=== PATIENT | female | born 1990 ===

== ENCOUNTER 2020-09-05 00:07 | Emergency (ER) | payer MEDICAID, SELFPAY ==
--- NOTE | ~2020-09-05 | CT_ITS ---
EXAMINATION: CT HEAD WITHOUT CONTRAST CLINICAL INFORMATION: Fall with head injury. Headache. Loss of consciousness. COMPARISON: None. TECHNIQUE: Contiguous axial imaging was performed from the skull base to vertex without intravenous contrast. This CT examination was performed using dose optimization techniques as appropriate, variously including the following: * Automated exposure control * Adjustment of mA and/or kV according to patient size (this includes techniques or standardized protocols for targeted exams where dose is matched to indication/reason for exam; i.e. extremities or head) Use of iterative reconstruction technique DLP: 621 mGy-cm. FINDINGS: There is no evidence of acute intracranial hemorrhage or territorial infarction. No abnormal mass effect or midline shift is seen. Carpio to white matter differentiation is well preserved. No extra-axial fluid collections are identified. No hydrocephalus. No significant volume loss. There is no abnormal attenuation within the brain parenchyma. The osseous structures and soft tissues are normal. The mastoid air cells and visualized portions of the paranasal sinuses are well aerated. CT/CT head/brain wo con IMPRESSION: No acute intracranial pathology.
[2020-09-05 00:14] VITALS: BP 135/85; PULSE 113; RESP 18; TEMP 36.2; O2SAT 97; BMI 27.3
[2020-09-05 01:40] LABS: UPreg QC Valid YES; Urine Pregnancy NEGATIVE (NEGATIVE)
--- NOTE | 2020-09-05 02:54 | ED_ITS ---
HPI - Fall General Chief Complaint: Fall Stated Complaint: poly substance Time Seen by Provider: 09/05/20 00:26 Source: patient Mode of arrival: EMS Limitations: no limitations History of Present Illness HPI Narrative: 30-year-old female who presents emergency department for evaluation of a fall. The patient states that she smoked ?glover rocks and also took PCP. She states she then fell and struck her head. She believes she passed out twice. She cannot recall any other details. The patient states that 2 days prior she did sprain her right knee and fell injuring her right knee. She states she can walk but her knee hurts when she walks. She denied fever, chills, chest pain, shortness of breath, cough, nausea, vomiting, abdominal pain. Related Data Allergies Allergy/AdvReac Type Severity Reaction Status Date / Time No Known Allergies Allergy Verified 09/05/20 01:13 Review of Systems Review of Systems: Yes all other systems are reviewed and are negative PMFSH Past Medical History [facility] Narrative: Patient states she has a history of PTSD and anxiety. She does not take any medications. She smokes 3 cigarettes per day. She occasionally drinks alcohol, she does use illicit drugs. Medical History (Updated 09/05/20 @ 00:18 by Luis Sanders) No known health problems Social History Social History Advance Directives: No Advance Directives Information Provided: No Patient : No Physical Exam Vital Signs: Vital Signs: Last Vital Signs Temp 97.2 F 09/05/20 00:14 Pulse 113 H 09/05/20 00:14 Resp 18 09/05/20 00:14 BP 135/85 09/05/20 00:14 Pulse Ox 97 09/05/20 00:14 Body Mass Index 27.3 Const: General: cooperative Orientation/consciousness: oriented to person and oriented to place Limitations: no limitations HENMT: Head: Yes normal to inspection, Yes normocephalic and Yes atraumatic Ears: external ears normal General nose exam: Normal external nose present Face and sinus: Yes normal facial exam Mouth: Normal oral and palatal mucosa present Throat: Yes posterior oropharynx normal Eyes: Periorbital: periorbital findings normal Eyelids: Yes eyelids normal Conjunctivae: conjunctivae normal Sclerae: sclerae normal Corneas: corneas normal Pupils: Equal, round and reactive pupils present Direct Ophthalmoscopy: normal light reflex Neck: Neck: Yes full ROM, Yes no lymphadenopathy, Yes no meningeal signs, Yes trachea midline and Yes supple Chest: Chest palpation & inspection: normal inspection of the chest and normal palpation of entire chest wall Resp: Effort & Inspection: normal respiratory effort and able to speak in complete sentences Auscultation: clear to auscultation bilaterally Cardio: Rate: regular rate Rhythm: regular rhythm Heart sounds: S1 normal heart sound present, S2 normal heart sound present and no murmurs GI: Inspection: Yes normal to inspection Palpation (GI): Soft to palpation, nontender, no guarding, not rigid and No hepatosplenomegaly present : General: Yes no CVA tenderness Back/Spine/Pelvis: Back: no CVA tenderness Cervical Spine: normal cervical lordosis Thoracic/Lumbar Spine: thoracic and lumbar spine normal to inspection Skin: Lesions: no lesions Rashes: no rashes Wounds: no wounds Neuro: General: oriented to person, oriented to place and no meningeal signs Cranial nerves: Yes CN's II-XII intact bilaterally and Yes Equal, round and reactive pupils present Cognition (Neuro): normal cognition Motor exam (neuro): 5/5 motor strength present throughout Extrem: General: Yes normal to inspection and Yes full ROM Psych: Appearance: well kempt Mental Status: mental status grossly normal Speech and movement: Normal speech and movement present Affect: normal affect Attitude: cooperative Thought process: Normal thought process present Thought content: Normal thought content present Course Course Course Narrative: 30-year-old female who presents emergency department for a fall after using illicit drugs. The patient's physical examination did not reveal any significant head trauma however she reported loss of consciousness therefore I ordered a CT scan of the head. CT scan was unremarkable. 0300: The patient does appear to be slightly altered secondary to the drugs that she took. At this time the patient will be placed in physician observation until she is back to her baseline. The patient's care was turned over to my colleague, Dr. Drummond. Physician observation started at 0 300. Patient placed in physician observation because the patient needed more time to metabolize and sober up from the drugs that she took. At the time observation was started the patient's vitals were stable, patient awake but appears to be altered due to drug she ingested, Neuro: nonfocal, CV RRR, Lungs clear. MDM - Fall Lab Data Labs: Lab Results 09/05/20 Range/Units 01:33 Urine Test NEGATIVE (NEGATIVE)
[2020-09-05 04:00] VITALS: RESP 14
[2020-09-05 06:00] VITALS: BP 125/85; PULSE 100; RESP 15; O2SAT 98
[2020-09-05 06:47] LABS: Amphetamine Screen Urine Not Detected (Not Detect); Barbiturates, Urine Not Detected (Not Detect); Benzodiazepines Screen Urine Not Detected (Not Detect); Cannabinoid Screen Urine POSITIVE (Not Detect); Cocaine Screen Urine Not Detected (Not Detect); Opiate Screen Urine Not Detected (Not Detect); Phencyclidine Screen Urine POSITIVE (Not Detect)
--- NOTE | 2020-09-05 08:03 | PC.NURSE ---
Steady gait on discharge, Pt escorted to the ED front entrance by this medical writer.
== END 2020-09-05 08:02 | disposition home or self-care (01) ==
PROVIDERS: Emergency Provider Emergency Medicine Emergency Medical Services
DX: S89.91XA Unspecified injury of right lower leg, initial encounter (principal); F16.90 Hallucinogen use, unspecified, uncomplicated; G44.309 Post-traumatic headache, unspecified, not intractable; W01.0XXA Fall on same level from slipping, tripping and stumbling without subsequent striking against object, initial encounter; Y93.9 Activity, unspecified; Y92.9 Unspecified place or not applicable; Y99.9 Unspecified external cause status; Z79.899 Other long term (current) drug therapy
CPT/HCPCS: 70450; 80307; 81025; 99284

== ENCOUNTER 2020-09-17 09:45 | Emergency (ER) | payer MEDICAID, SELFPAY ==
[2020-09-17 09:55] VITALS: BP 124/65; BP 155/81; PULSE 76; PULSE 92; RESP 18; TEMP 36.7; O2SAT 98; BMI 25.7
--- NOTE | 2020-09-17 10:30 | ED_ITS ---
HPI - Psych General Chief Complaint: ETOH/Substance Use <SOLOMON Colby Last Filed: 09/17/20 12:19> Stated Complaint: AMS S/P PCP & MARIJUANA USE <SOLOMON Colby Last Filed: 09/17/20 12:19> Time Seen by Provider: 09/17/20 10:17 <SOLOMON Colby Last Filed: 09/17/20 12:19> Source: patient and EMS <SOLOMON Colby Last Filed: 09/17/20 12:19> Mode of arrival: EMS <SOLOMON Colby Last Filed: 09/17/20 12:19> Limitations: no limitations <SOLOMON Colby Last Filed: 09/17/20 12:19> History of Present Illness HPI Narrative: 22-year-old female here with concern for altered mental status. Her PD the boyfriend called because the patient was confused and he was concerned. On arrival the patient is alert and oriented. She tells me that she smoked weed and PCP this morning. No additional substance use. No SI or HI. No physical complaints. The patient tells me that she is having some relationship problems with her boyfriend and he called to get her out of the house. On arrival alert and oriented x3. <SOLOMON Colby Last Filed: 09/17/20 12:19> Related Data Allergies/Adverse Reactions: Allergies Allergy/AdvReac Type Severity Reaction Status Date / Time No Known Allergies Allergy Verified 09/05/20 01:13 <SOLOMON Colby Last Filed: 09/17/20 12:19> Review of Systems Review of Systems: Yes all other systems are reviewed and are negative <SOLOMON Colby Last Filed: 09/17/20 12:19> Constitutional: Constitutional: Reports no additional constitutional complaints, Denies body ache(s), Denies chills, Denies fever(s), Denies headache(s) and Denies weakness <SOLOMON Colby Last Filed: 09/17/20 12:19> Eyes: Eyes: Reports no additional eye complaints and Denies change in vision <Jina Her [employer] - Last Filed: 09/17/20 12:19> ENT: Reports system reviewed and no additional complaints, except as documented, Denies dizziness, Denies headache(s), Denies nasal congestion, Denies nasal discharge and Denies neck pain <Jina Her [employer] - Last Filed: 09/17/20 12:19> Cardiovascular: Cardiovascular: Reports no additional cardiovascular complaints, Denies chest pain, Denies leg edema and Denies dyspnea <Jina Her [employer] - Last Filed: 09/17/20 12:19> Respiratory: Respiratory: Reports no additional respiratory complaints, Denies cough and Denies dyspnea <Jina Her [employer] - Last Filed: 09/17/20 12:19> Gastrointestinal: Gastrointestinal: Reports no additional gastrointestinal complaints, Denies abdominal pain, Denies diarrhea, Denies nausea and Denies vomiting <Jina Her [employer] - Last Filed: 09/17/20 12:19> Genitourinary: Genitourinary: Reports no additional female genitourinary complaints and Denies urinary incontinence <Jina Her [employer] - Last Filed: 09/17/20 12:19> Musculoskeletal: Musculoskeletal: Reports no additional musculoskeletal complaints, Denies back pain, Denies arthralgias, Denies joint swelling, Denies neck pain, Denies numbness and Denies tingling <Jina Her [employer] - Last Filed: 09/17/20 12:19> Integumentary/Breasts: Skin/Breast: Reports system reviewed and no additional complaints, except as docu and Denies rash <Jina Her [employer] - Last Filed: 09/17/20 12:19> Neurologic: Reports system reviewed and no additional complaints, except as documented, Denies Abnormal speech present, Denies dizziness, Denies headache(s), Denies numbness, Denies tingling and Denies weakness <Jina Her [employer] - Last Filed: 09/17/20 12:19> Psychiatric: Psychiatric: Denies anxiety, Denies depression, Denies visual hallucinations, Denies hallucinations, Denies homicidal ideation and Denies suicidal ideation <Jina Her NP - Last Filed: 09/17/20 12:19> [facility] Past Medical History Attestation statement: The following information was validated with the patient. <Jina Her NP - Last Filed: 09/17/20 12:19> Source: old records reviewed and nursing notes reviewed <Jina Her NP - Last Filed: 09/17/20 12:19> Medical History: Medical History No known health problems <Jina Her NP - Last Filed: 09/17/20 12:19> Social History Social History: Social History Alcohol intake: unknown Substance Use Type: Amphetamines, Crack/Cocaine and Marijuana Advance Directives: Yes Advance Directives Information Provided: Yes Advance Directives on File: No Patient : No <Jina Her NP - Last Filed: 09/17/20 12:19> Physical Exam Vital Signs: Vital Signs: Last Vital Signs Temp 98.1 F 09/17/20 09:55 Pulse 76 09/17/20 09:55 Resp 18 09/17/20 09:55 BP 155/81 H 09/17/20 09:55 Pulse Ox 98 09/17/20 09:55 Body Mass Index 25.7 <Jina Her NP - Last Filed: 09/17/20 12:19> Vital Signs: Last Vital Signs Temp 98.1 F 09/17/20 09:55 Pulse 76 09/17/20 09:55 Resp 18 09/17/20 09:55 BP 155/81 H 09/17/20 09:55 Pulse Ox 98 09/17/20 09:55 Body Mass Index 25.7 <Des Rosario MD - Last Filed: 10/20/20 14:58> Const: General: cooperative, healthy appearing, comfortable and no acute distress <Jina Her NP - Last Filed: 09/17/20 12:19> Orientation/consciousness: patient oriented x3 <Jina Her NP - Last Filed: 09/17/20 12:19> Limitations: no limitations <Jina Her NP - Last Filed: 09/17/20 12:19> HENMT: Head: Yes normal to inspection <Jina Her NP - Last Filed: 09/17/20 12:19> Ears: hearing grossly normal bilaterally <Jina Her NP - Last Filed: 09/17/20 12:19> General nose exam: Normal external nose present <Jina Her NP - Last Filed: 09/17/20 12:19> Face and sinus: Yes normal facial exam <Jina Her NP - Last Filed: 09/17/20 12:19> Mouth: Normal oral and palatal mucosa present <Jina Her NP - Last Filed: 09/17/20 12:19> Throat: Yes posterior oropharynx normal <Jina Her NP - Last Filed: 09/17/20 12:19> Eyes: General: appearance normal, both eyes and all related structures <Jina Her [employer] - Last Filed: 09/17/20 12:19> Pupils: Equal, round and reactive pupils present <Jina Her NP - Last Filed: 09/17/20 12:19> Neck: Neck: Yes normal visual inspection <Jina Her NP - Last Filed: 09/17/20 12:19> Chest: Chest palpation & inspection: normal inspection of the chest <Jina Her NP - Last Filed: 09/17/20 12:19> Resp: Effort & Inspection: normal respiratory effort <Jina Her NP - Last Filed: 09/17/20 12:19> Auscultation: clear to auscultation bilaterally <Jina Her NP - Last Filed: 09/17/20 12:19> Cardio: Rate: regular rate <Jina Her NP - Last Filed: 09/17/20 12:19> Rhythm: regular rhythm <Jina Her NP - Last Filed: 09/17/20 12:19> Peripheral pulses: Peripheral pulses 2+ throughout <Jina Her NP - Last Filed: 09/17/20 12:19> GI: Inspection: Yes normal to inspection <Jina Her NP - Last Filed: 09/17/20 12:19> Palpation (GI): Soft to palpation and nontender <Jina Her [employer] - Last Filed: 09/17/20 12:19> Auscultation: normal bowel sounds <Jina Her [employer] - Last Filed: 12:19> Back/Spine/Pelvis: Thoracic/Lumbar Spine: thoracic and lumbar spine normal to inspection <Jina Her [employer] - Last Filed: 09/17/20 12:19> Skin: General skin exam: no rashes or lesions noted <Jina Her [employer] - Last Filed: 09/17/20 12:19> Neuro: General: patient oriented x3, no focal motor deficits and normal sensation to monofilament <Jina Her NP - Last Filed: 09/17/20 12:19> Cranial nerves: Yes CN's II-XII intact bilaterally, Yes Equal, round and reactive pupils present, Yes Bilaterally intact EOM present, Yes Nystagmus not present, Yes Normal facial strength present and Yes Midline tongue present <Jina Her [employer] - Last Filed: 09/17/20 12:19> Cognition (Neuro): normal cognition <Jina Her [employer] - Last Filed: 09/17/20 12:19> Speech: No Abnormal speech present <Jina Her NP - Last Filed: 09/17/20 12:19> Gait exam (Neuro): Normal gait present <Jina Her NP - Last Filed: 09/17/20 12:19> Motor exam (neuro): 5/5 motor strength present throughout <Jina Her NP - Last Filed: 09/17/20 12:19> Sensory Exam: Normal double simultaneous stimulation for sensation <Jina Her [employer] - Last Filed: 09/17/20 12:19> Extrem: General: Yes normal to inspection <Jina Her [employer] - Last Filed: 09/17/20 12:19> Course Course Course Narrative: 30 yo female here with concern for altered mental status, question substance use. On arrival the patient is alert and oriented. Neuro was intact. She tells me this morning she did smoke some PCP and marijuana. Denies additional substance abuse. No SI or HI. 1215-spoke to father was no safety concerns. Spoke to her friend Tj who will come pickling machine operator the patient and bring her home. On discharge alert and oriented x3. steady gait <Jina Her NP - Last Filed: 09/17/20 12:19> I have reviewed the chart <Des Rosario MD - Last Filed: 10/20/20 14:58> MDM - Psych Differential Diagnosis Differential diagnosis: Likely substance abuse <Jina Her NP - Last Filed: 09/17/20 12:19> Medical Records Attestation: I reviewed the patient's medical records. <Jina Her NP - Last Filed: 09/17/20 12:19> Lab Data Attestation: I reviewed the patient's lab results. <Jina Her NP - Last Filed: 09/17/20 12:19> Discharge Plan Discharge Clinical Impression: Phencyclidine (PCP) use disorder, mild <Jina Her NP - Last Filed: 09/17/20 12:19> Patient Disposition: Home, Self-Care <Jina Her NP - Last Filed: 09/17/20 12:19> Instructions: Polysubstance Abuse (ED) <Jina Her NP - Last Filed: 09/17/20 12:19> Additional Instructions: Stop using drugs. These CAN kill you <Jina Her NP - Last Filed: 09/17/20 12:19> Referrals: Physician,Unknown [Primary Care Provider] - 2 days <Jina Her NP - Last Filed: 09/17/20 12:19> Interventions: ED Discharge Assessment Last Done: 09/17/20 12:08 <Jina Her NP - Last Filed: 09/17/20 12:19> Discharge Date/Time: 09/17/20 12:55 <Jina Her [employer] - Last Filed: 09/17/20 12:19>
--- NOTE | 2020-09-17 11:38 | MHC.RECOVSUP ---
? Reason for consult:Continuity of care o Current location:[facility] o Identified substance use concern: Marijuana and PCP - Support ? Intervention: o Community resources provided o Harm reduction discussion ? Plan: o Patient awaiting crisis evaluation o Patient to follow up with [facility] after discharge ? Additional information: Pt.under the influence of Marijuana and PCP, she does'nt believe she has a problem, attributes re-lapse to relationship issues.Pt states: she just was released from a detox/css after being there for 30 days. Pt.states that she wants to go home and refused any services. Pt.given community resources and spoken to about [facility].
== END 2020-09-17 12:55 | disposition home or self-care (01) ==
PROVIDERS: Emergency Provider Emergency Medicine
DX: F16.19 Hallucinogen abuse with unspecified hallucinogen-induced disorder (principal); Z71.51 Drug abuse counseling and surveillance of drug abuser
CPT/HCPCS: 99283

== ENCOUNTER 2022-11-21 21:19 | Emergency (ER) | payer OTHER, SELFPAY ==
[2022-11-21 21:23] VITALS: BP 116/70; PULSE 76; O2SAT 98
[2022-11-21 21:31] VITALS: BP 105/65; PULSE 85; RESP 18; TEMP 36.7; O2SAT 98; BMI 28.1
--- NOTE | 2022-11-21 21:43 | ED_ITS ---
HPI - General Adult General Chief complaint: General Medical Stated complaint: WANTS HEALTH SCREEN Time Seen by Provider: 11/21/22 21:43 Source: patient and RN notes reviewed Mode of arrival: EMS Limitations: no limitations Related Data Allergies Allergy/AdvReac Type Severity Reaction Status Date / Time No Known Allergies Allergy Verified 11/21/22 21:34 [facility] Past Medical History Medical History No known health problems Social History Social History Alcohol intake: unknown Substance Use Type: Amphetamines, Crack/Cocaine and Marijuana Advance Directives: No Advance Directives Information Provided: No Physical Exam ED Vital Signs: Vital Signs - 24 hr 11/21/22 21:31 Temperature 98.1 F Pulse Rate 85 Respiratory Rate 18 Blood Pressure 105/65 Pulse Oximetry 98 Oxygen Delivery Method Room Air BMI result Body Mass Index 28.1 Discharge Plan Discharge Clinical Impression: Exposure to body fluid Patient Disposition: Xfer Psychiatric Hosp Transfer Details: Patient does not need any further medical attention for fluid exposure Eyes were washed Instructions: Body Substance Exposure (ED) Additional Instructions: Further with your psychiatrist
--- OUTSIDE RECORDS SUMMARY | 2022-11-21 21:50 | XMS_ITS | Continuity of Care Document ---
Author Name Unknown Organization [facility] ter Address [address] [place] [id number]- Care Team Providers Care Residential Caregiver Name Role Phone Maria Del Carmen OSEI, [facility] Primary Care Physician Encounter [facility] Date(s): 09/15/19 - 09/15/[address] [address]- [facility] Discharge Disposition: A-D/C Home Attending Physician: Meghan Arteaga DO Admitting Physician: Meghan Arteaga DO Referring Physician: Not on Staff, Referring MD Allergies, Adverse Reactions, Alerts Substance Reaction Severity Status Pollen Active Nicotine Patch Active Immunizations Given and Recorded Vaccine Date Status Refusal Reason tetanus/diphtheria/pertussis, acel(Tdap) 07/01/16 Given tetanus/diphtheria/pertussis, acel(Tdap) 09/26/13 Given tetanus/diphtheria/pertussis, acel(Tdap) 10/09/12 Given tetanus/diphtheria/pertussis, acel(Tdap) 1 11/17/11 Given influenza virus vaccine, inactivated 04/06/11 Give n 1Admin Note: vis:05/18/2011 Medications albuterol CFC free 90 mcg/inh inhalation aerosol 2, puffs, Inhalation, 4 times a day, PRN, # 18 Gm, Refills 0, Tot. Refills 0, Maintenance, 04/06/1614:33:19, Aerosol, Route to Pharmacy Electronically, [id number], [facility] [id number], Compound Start Date: 04/06/16 Status: Ordered ibuprofen 600 mg oral tablet 600 mg, 1, tablet, By Mouth, Every 6 hours, # 60 tablet, Refills 0, Tot. Refills 0, Maintenance, 08/18/16 21:05:09, Print Requisition Start Date: 08/18/16 Status: Ordered Keflex monohydrate 500 mg oral capsule 1 capsule = 500 mg, By Mouth, 4 times a day, for 10 days, # 40 capsule, 0 Refills, Acute 09/25/19 17:15:00 EDT, 09/15/19 17:15:00 EDT, Capsule, [id number], 160, cm, 12/30/17 14:21:00EDT, Height Start Date: 09/15/19 Stop Date: 09/25/19 Status: Ordered ProAir HFA 90 mcg/inh inhalation aerosol with adapter 1 puffs, Inhalation, Every 6 hours, PRN for wheezing, # 8.5 Gm, 0 Refills, Maintenance, 06/23/15 15:59:03, Aerosol, 1 puffs Inhalation Every 6 hours,PRN:for wheezing Start Date: 06/23/15 Status: Ordered Problem List Condition Effective Dates Status Health Status Inform ant Anxiety(Confirmed) Active Fibrocystic breast(Confirmed) Active , supervision of, high-risk(Confirmed) Active History of abnormal cervical Pap smear(Confirmed) 1 Active History of substance abuse(Confirmed) Active Breast pain(Confirmed) Active examination follo wing delivery(Confirmed) Active PTSD (post-traumatic stress disorder)(Confirmed) Active Reflux(Confirmed) Active Blood type, Rh negative(Confirmed) Active Current smoker(Confirmed) Active Substance abuse(Confirmed) Active 04/20/14 [facility] Results Radiology Reports * Exam Date Time Procedure Performing Provider Status 09/15/19 2:29 PM Hand Min 3 Views Right Dinesh Basurto; Auth (Verified) Notes: (Hand Min 3 Views Right) Reason For Exam: Pain RESULT: Hand Min 3 Views Right Hand Min 3 Views Right, 3 views Refer to EMR; Reason: Pain; Clinical Question(s): Fracture; Hx of Present Illness: lac right forefinger; Other Objective Findings: Pt states she got into an alteration and got a lac on her forefinger. Lac approx. 2.5 cm, steri stripped by patient with finger guard on. Bleeding stopped. 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 When COMPARISON: None. FINDINGS: No fractures or bone lesions. No arthritic changes. Normal soft tissues. IMPRESSION: Normal. WSN: [id number] Ordering Physician: Eryn Bello Dictated By: Roro Richard MD Dictated Date/Time: 09/15/19 3:01 pm Reviewed By: Roro Richard MD Signed By: Roro Richard MD Signed Date/Time: 09/15/19 3:01 pm Transcribed By: HARI Transcribed Date/Time: 09/15/19 3:00 pm Vital Signs Most recent to oldest [Reference Range]: 1 2 3 Oxygen Saturation [94-100 %] 100 % (09/15/19 7:04 PM) 98 % (09/15/19 2:54 PM) 98 % (09/15/19 12:09 PM) Pulse Rate [55-90 bpm] 84 bpm (09/15/19 7:04 PM) 72 bpm (09/15/19 2:54 PM) 105 bpm *H* (09/15/19 12:09 PM) Blood Pressure [90-138/55-84 mm Hg] 105/49mm Hg (09/15/19 7:04 PM) 111/66mm Hg (09/15/19 2:54 PM) 128/72mm Hg (09/15/19 12:09 PM) Respiratory Rate [16-30 br/min] 15 br/min *L* (09/15/19 7:04 PM) 18 br/min (09/15/19 2:54 PM) 16 br/min (09/15/19 12:09 PM) Temperature [96.8-100.4 DegF] 98.6 DegF (09/15/19 7:04 PM) 99.1 DegF (09/15/19 2:54 PM) 97.2 DegF (09/15/19 12:09 PM) Mode of Delivery (Oxygen) Room air (09/15/19 7:04 PM) Room air (09/15/19 2:54 PM) Room air (09/15/19 12:09 PM) Blood pressure sites Arm, left (09/15/19 7:04 PM) Arm, left (09/15/19 2:54 PM) Temperature Route Oral (09/15/19 7:04 PM) Oral (09/15/19 2:54 PM) Oral (09/15/19 12:09 PM) Social History Social History Type Response Smoking Status Current every day felix serna; Other: 4-5 cigarettes per day; entered on: 08/07/14 Sex
--- OUTSIDE RECORDS SUMMARY | 2022-11-21 21:50 | XMS_ITS | Continuity of Care Document ---
Author Name Unknown Organization [facility] Adult Address [address] [place] [address]- Care Team Providers Care Radar Scientist Name Role Phone Not on Staff, PCP Primary Care Physician Unavail able Encounter [facility] Date(s): 03/03/21 - 04/03/21 [facility] [address] [place] [address]- Attending Physician: Maria Del Carmen OSEI, [facility] Allergies, Adverse Reactions, Alerts Substance Reaction Severity Status Pollen Active Immunizations Given and Recorded Vaccine Date Status Refusal Reason SARS-CoV-2 (COVID-19) mRNA BNT-162b2 vac 12/26/20 Recorded tetanus/diphtheria/pertussis, acel(Tdap) 07/01/16 Given tetanus/diphtheria/pertussis, acel(Tdap) 09/26/13 Given tetanus/diphtheria/pertussis, acel(Tdap) 10/09/12 Given tetanus/diphtheria/pertussis, acel(Tdap) 1 11/17/11 Given influenza virus vaccine, inactivated 04/06/11 Give n 1Admin Note: vis:05/18/2011 Medications ProAir HFA 90 mcg/inh inhalation aerosol with adapter 1 puffs, Inhalation, Every 6 hours, PRN for wheezing, # 8.5 Gm, 0 Refills, Maintenance, 06/23/15 15:59:03, Aerosol, 1 puffs Inhalation Every 6 hours,PRN:for wheezing Start Date: 06/23/15 Status: Ordered ZyPREXA 10 mg oral tablet 10 mg, 1, tablet, By Mouth, Daily at bedtime, # 30 tablet, Refills 0, Tot. Refills 0, Maintenance, 03/03/21 9:12:00 EST, Route to Pharmacy Electronically, [facility]/pharmacy #[id number], Partial fill upon patient request if the prescription is for a schedule II o... Start Date: 03/03/21 Status: Ordered Problem List Condition Effective Dates Status Health Status Inform ant Anxiety(Confirmed) Active Fibrocystic breast(Confirmed) Active , supervision of, high-risk(Confirmed) Active History of abnormal cervical Pap smear(Confirmed) 1 Active History of substance abuse(Confirmed) Active Breast pain(Confirmed) Active examination follo wing delivery(Confirmed) Active PTSD (post-traumatic stress disorder)(Confirmed) Active Reflux(Confirmed) Active Blood type, Rh negative(Confirmed) Active Current smoker(Confirmed) Active Substance abuse(Confirmed) Active 04/20/14 ASCUS Social History Social History Type Response Smoking Status Current every day sm oker; Other: 4-5 cigarettes per day; entered on: 08/07/14 Sex
--- OUTSIDE RECORDS SUMMARY | 2022-11-21 21:50 | XMS_ITS | Continuity of Care Document ---
Author Name Unknown Organization [facility] ter Address [address] [place] [address]- Care Team Providers Care Metallurgy Teacher Name Role Phone [facility] Primary Care Physician [place] [facility] [place] - 02/25/[address] [address]- Encounter Diagnosis Psychotic symptom present(Final) - 02/25/21 Discharge Disposition: Transfer to [facility] Facility Attending Physician: Linda Duran MD Admitting Physician: Linda Duran MD Referring Physician: Not on Staff, Referring MD Allergies, Adverse Reactions, Alerts Substance Reaction Severity Status Pollen Active Nicotine Patch 1 Active 1Per , RN confirmed with patient no allergy with nicotine patch 08/03/20 Immunizations Given and Recorded Vaccine Date Status [...] Maintenance, 04/06/1614:33:19, Aerosol, Route to Pharmacy Electronically, [id number], [facility] [id number], Compound Start Date: 04/06/16 Status: Ordered bacitracin topical 500 u/gm ointment 1 application, Topically, 3 times a day, # 15 Gm, 0 Refills, Maintenance, 01/28/20 21:17:00 EDT, Ointment, [facility], 1 application Topically 3 times a day Start Date: 01/28/20 Status: Ordered dolutegravir 50 mg oral tablet 1 tablet = 50 mg, By Mouth, 2 times a day, # 14 tablet, 0 Refills, Maintenance, 10/21/19 19:49:00 EDT, Tablet Start Date: 10/21/19 Stop Date: 10/28/19 Status: Ordered ibuprofen 600 mg oral tablet 600 mg, 1, tablet, By Mouth, Every 6 hours, # 60 tablet, Refills 0, Tot. Refills 0, Maintenance, 08/18/16 21:05:09, Print Requisition Start Date: 08/18/16 Status: Ordered ProAir HFA 90 mcg/inh inhalation aerosol with adapter 1 puffs, Inhalation, Every 6 hours, PRN for wheezing, # 8.5 Gm, 0 Refills, Maintenance, 06/23/15 15:59:03, Aerosol, 1 puffs Inhalation Every 6 hours,PRN:for wheezing Start Date: 06/23/15 Status: Ordered Truvada 200 mg-300 mg oral tablet 1 tablet, By Mouth, Daily, # 7 tablet, 0 Refills, Maintenance, 10/21/19 19:49:00 EDT, Tablet Start Date: 10/21/19 Stop Date: 10/28/19 Status: Ordered ZyPREXA 5 mg oral tablet 5 mg, 1, tablet, By Mouth, Daily, Refills 0, Maintenance, 02/25/21 19:23:00 EDT, Partial fill upon patient request if the prescription is for a schedule II opioid drug. Start Date: 02/25/21 Status: Ordered Problem List Condition Effective Dates Status Health Status Inform ant Anxiety(Confirmed) Active Fibrocystic breast(Confirmed) Active , supervision of, high-risk(Confirmed) Active History of abnormal cervical Pap smear(Confirmed) 1 Active History of substance abuse(Confirmed) Active Breast pain(Confirmed) Active examination follo wing delivery(Confirmed) Active PTSD (post-traumatic stress disorder)(Confirmed) Active Reflux(Confirmed) Active Blood type, Rh negative(Confirmed) Active Current smoker(Confirmed) Active Substance abuse(Confirmed) Active 04/20/14 ASCUS Vital Signs Most recent to oldest [Reference Range]: 1 2 3 Oxygen Saturation [94-100 %] 98 % (02/25/21 3:48 PM) 99 % (02/25/21 1:35 PM) 100 % (02/25/21 10:41 AM) Pulse Rate [55-90 bpm] 69 bpm (02/25/21 3:48 PM) 80 bpm (02/25/21 1:35 PM) 86 bpm (02/25/21 10:41 AM) Blood Pressure [90-138/55-84 mm Hg] 132/81mm Hg (02/25/21 3:48 PM) 125/69mm Hg (02/25/21 1:35 PM) 116/70mm Hg (02/25/21 10:41 AM) Respiratory Rate [16-30 br/min] 18 br/min (02/25/21 3:48 PM) 18 br/min (02/25/21 1:35 PM) 18 br/min (02/25/21 10:41 AM) Temperature [96.8-100.4 DegF] 97 DegF (02/25/21 7:31 AM) 98.8 DegF (02/24/21 8:24 PM) Mode of Delivery (Oxygen) Room air (02/25/21 3:48 PM) Room air (02/25/21 1:35 PM) Room air (02/25/21 10:41 AM) Blood pressure sites Arm, right (02/25/21 3:48 PM) Arm, right (02/25/21 1:35 PM) Arm, right (02/25/21 10:41 AM) Temperature Route Oral (02/25/21 7:31 AM) Oral (02/24/21 8:24 PM) Social History Social History Type Response Smoking Status Current every day sm kareem; Other: 4-5 cigarettes per day; entered on: 08/07/14 Sex
--- OUTSIDE RECORDS SUMMARY | 2022-11-21 21:50 | XMS_ITS | Continuity of Care Document ---
Author Name Unknown Organization [facility] Adult Address [address] [place] [address]- Care Team Providers Care Chaser Helper Name Role Phone Maria Del Carmen OSEI, [facility] Primary Care Physician Encounter [facility] [place] Date(s): 08/12/20 - 09/11/20 [facility] [address] [place] [address]- Allergies, Adverse Reactions, Alerts Substance Reaction Severity [...] Maintenance, 04/06/1614:33:19, Aerosol, Route to Pharmacy Electronically, [id number], [facility] [address], Compound Start Date: 04/06/16 Status: Ordered bacitracin topical 500 u/gm ointment 1 application, Topically, 3 times a day, # 15 Gm, 0 Refills, Maintenance, 01/28/20 21:17:00 EDT, Ointment, [facility], 1 application Topically 3 times a [...] Date: 10/21/19 Stop Date: 10/28/19 Status: Ordered Problem List Condition Effective Dates [...]
--- OUTSIDE RECORDS SUMMARY | 2022-11-21 21:50 | XMS_ITS | Continuity of Care Document ---
Author Name Unknown Organization [facility] ter Address [address] [place] [address]- Care Team Providers Care Plate Hanger Name Role Phone Percy Joyce MD Primary Care Physician Encounter [facility] [place] Date(s): 07/26/20 - 08/05/[address] [address]- Encounter Diagnosis Altered mental status(Final) - 07/26/20 Discharge Disposition: Transfer to [facility] Facility Attending Physician: Nehemiah Kaufman MD Admitting Physician: Nehemiah Kaufman MD Referring Physician: Not on Staff, Referring [...] Maintenance, 04/06/1614:33:19, Aerosol, Route to Pharmacy Electronically, [id number], [facility] [id number], Compound Start Date: 04/06/16 Status: Ordered bacitracin topical 500 u/gm ointment 1 application, Topically, 3 times a day, # 15 Gm, 0 Refills, Maintenance, 01/28/20 21:17:00 EDT, Ointment, [facility], 1 application Topically 3 [...] 3 Oxygen Saturation [94-100 %] 98 % (08/05/20 8:00 AM) 100 % (08/05/20 6:45 AM) 100 % (08/04/20 11:17 PM) Pulse Rate [55-90 bpm] 90 bpm (08/05/20 8:00 AM) 79 bpm (08/05/20 6:45 AM) 84 bpm (08/04/20 11:17 PM) Blood Pressure [90-138/55-84 mm Hg] 119/65mm Hg (08/05/20 8:00 AM) 116/59mm Hg (08/05/20 6:45 AM) 105/59mm Hg (08/04/20 11:17 PM) Respiratory Rate [16-30 br/min] 18 br/min (08/05/20 8:00 AM) 16 br/min (08/05/20 6:45 AM) 17 br/min (08/04/20 11:17 PM) Temperature [96.8-100.4 DegF] 98.5 DegF (08/05/20 6:45 AM) 98.7 DegF (08/04/20 11:17 PM) 98.3 DegF (08/04/20 2:35 PM) Liters per Minute 0 L/min (07/26/20 1:00 PM) Mode of Delivery (Oxygen) Room air (08/05/20 8:00 AM) Room air (08/05/20 6:45 AM) Room air (08/04/20 11:17 PM) Blood pressure sites Arm, right (08/05/20 6:45 AM) Arm, right (08/04/20 11:17 PM) Arm, right (08/04/20 2:35 PM) Temperature Route Oral (08/05/20 6:45 AM) Oral (08/04/20 11:17 PM) Oral (08/04/20 2:35 PM) Social History Social History Type Response Smoking Status Current every day sm aliciaer; Other: 4-5 cigarettes per day; entered on: 08/07/14 Sex
--- OUTSIDE RECORDS SUMMARY | 2022-11-21 21:50 | XMS_ITS | Continuity of Care Document ---
Author Name Unknown Organization [facility] Adult Address [address] [place] [address]- Care Team Providers Care Machine Filler Servicer Name Role Phone Maria Del Carmen OSEI, [facility] Primary Care Physician [place] [facility] [place] 08/[place]/20 - 09/04/20 [facility] [address] [place] [address]- Attending Physician: Percy Joyce MD Allergies, Adverse Reactions, Alerts Substance Reaction [...] Maintenance, 04/06/1614:33:19, Aerosol, Route to Pharmacy Electronically, [id number], [facility] [address], Compound Start Date: 04/06/16 Status: Ordered bacitracin topical 500 u/gm ointment 1 application, Topically, 3 times a day, # 15 Gm, 0 Refills, Maintenance, 01/28/20 21:17:00 EDT, Ointment, [facility], 1 application Topically 3 times [...] Most recent to oldest [Reference Range]: 1 Height 167 cm (08/28/20 8:29 AM) Social History Social History Type Response Smoking Status Current every day sm oker; Other: 4-5 cigarettes per day; entered on: 08/07/14 Sex
--- OUTSIDE RECORDS SUMMARY | 2022-11-21 21:50 | XMS_ITS | Continuity of Care Document ---
Author Name Unknown Organization [facility] Address [address] [place] [address]- Care Team Providers Care Dye House Hand Name Role Phone Maria Del Carmen OSEI, [facility] Primary Care Physician ( [phone] [place] [facility] [place] - 05/07/[address] [address]- Attending Physician: Johan Guzman Admitting Physician: Johan Guzman Referring Physician: AdmtrJohan Allergies, Adverse Reactions, Alerts Substance Reaction Severity [...] Maintenance, 04/06/1614:33:19, Aerosol, Route to Pharmacy Electronically, [id number], [facility] [address], Compound Start Date: 04/06/16 Status: Ordered bacitracin topical 500 u/gm ointment 1 application, Topically, 3 times a day, # 15 Gm, 0 Refills, Maintenance, 01/28/20 21:17:00 EDT, Ointment, [facility], 1 application Topically 3 times [...]
--- OUTSIDE RECORDS SUMMARY | 2022-11-21 21:50 | XMS_ITS | Continuity of Care Document ---
Author Name Unknown Organization [facility] Adult Address [address] [place] [address]- Care Team Providers Care Director Quality Assurance Name Role Phone Maria Del Carmen OSEI, [facility] Primary Care Physician Encounter [facility] [place] Date(s): 09/18/20 - 10/18/20 [facility] [address] [place] [address]- Allergies, Adverse Reactions, Alerts Substance Reaction Severity [...] Maintenance, 04/06/1614:33:19, Aerosol, Route to Pharmacy Electronically, [id number], [facility] [address], Compound Start Date: 04/06/16 Status: Ordered bacitracin topical 500 u/gm ointment 1 application, Topically, 3 times a day, # 15 Gm, 0 Refills, Maintenance, 01/28/20 21:17:00 EDT, Ointment, [facility] 3, 1 application Topically 3 times [...]
--- OUTSIDE RECORDS SUMMARY | 2022-11-21 21:50 | XMS_ITS | Continuity of Care Document ---
Author Name Unknown Organization [facility] Adult Address [address] [place] [address]- Care Team Providers Care Ship Joiner Name Role Phone Maria Del Carmen OSEI, [facility] Primary Care Physician Encounter [facility] [place] Date(s): 09/24/20 - 10/24/20 [facility] [address] [place] [address]- Attending Physician: Johan Guzman Admitting Physician: AdmtrJohan Referring Physician: Admtr, Ar8 Allergies, Adverse Reactions, Alerts Substance Reaction Severity [...] Maintenance, 04/06/1614:33:19, Aerosol, Route to Pharmacy Electronically, [id number], [facility] [address], Compound Start Date: 04/06/16 Status: Ordered bacitracin topical 500 u/gm ointment 1 application, Topically, 3 times a day, # 15 Gm, 0 Refills, Maintenance, 10/05/20 21:17:00 EDT, Ointment, [facility], 1 application Topically [...]
--- OUTSIDE RECORDS SUMMARY | 2022-11-21 21:51 | XMS_ITS | Continuity of Care Document ---
Author Name Unknown Organization [facility] Address [address] [place] [address]- Care Team Providers Care Bond Manager Name Role Phone Maria Del Carmen OSEI, [facility] Primary Care Physician En[place] [facility] [place](s): 09/24/20 - 10/01/20 [facility] [address] [place] [address]- Encounter Diagnosis Hyperprolactinemia(Discharge Diagnosis) - 09/24/20 Attending Physician: Not on Staff, Attending MD Allergies, Adverse Reactions, Alerts Substance Reaction [...] Maintenance, 04/06/1614:33:19, Aerosol, Route to Pharmacy Electronically, [id number], [facility] [address], Compound Start Date: 04/06/16 Status: Ordered bacitracin topical 500 u/gm ointment 1 application, Topically, 3 times a day, # 15 Gm, 0 Refills, Maintenance, 01/28/20 21:17:00 EDT, Ointment, [facility], 1 application Topically 3 times [...] smoker(Confirmed) Active Substance abuse(Confirmed) Active 04/20/14 ASCUS Diagnosis Diagnosis Type Effective Dates Health Status Clinical Service Informant Hyperprolactinemia Discharge Diagnosis 09/24/20 Social History Social History Type Response Smoking Status Current every day sm oker; Other: 4-5 cigarettes per day; entered on: 08/07/14 Sex
--- OUTSIDE RECORDS SUMMARY | 2022-11-21 21:51 | XMS_ITS | Continuity of Care Document ---
Author Name Unknown Organization [facility] Address [address] [place] [address] [address] [place] [address]- Care Team Providers Care Truck Shop Supervisor Name Role Phone Maria Del Carmen OSEI, [facility] Primary Care Physician En[place] [facility] [place] Date(s): 10/08/19 - 11/21/19 [facility] [address] [place] [address]- [facility] Attending Physician: Pj Sheikh MD Allergies, Adverse Reactions, Alerts Substance Reaction [...] Maintenance, 04/06/1614:33:19, Aerosol, Route to Pharmacy Electronically, [id number], [facility] [address], Compound Start Date: 04/06/16 Status: Ordered dolutegravir 50 mg oral tablet [...]
--- OUTSIDE RECORDS SUMMARY | 2022-11-21 21:51 | XMS_ITS | Continuity of Care Document ---
Author Name Unknown Organization [facility] ter Address [address] [place] [address]- Care Team Providers Care Retail Coverage Merchandiser Name Role Phone Maria Del Carmen OSEI, [facility] Primary Care Physician Encounter [facility] [place] Date(s): 10/21/19 - 10/21/[address] [address]- [facility] Encounter Diagnosis Trichomonas infection(Final) - 10/21/19 Discharge Disposition: A-D/C Skilled Nursing, Intermediate, or Longterm Fac Attending Physician: Diego So MD Admitting Physician: Diego So MD Referring Physician: Not on Staff, Referring [...] Maintenance, 04/06/1614:33:19, Aerosol, Route to Pharmacy Electronically, [id number], [facility] [address], Compound Start Date: 04/06/16 Status: Ordered dolutegravir 50 mg oral tablet 1 tablet = 50 mg, By Mouth, 2 times a day, # 14 tablet, 0 Refills, Maintenance, 10/21/19 19:49:00 EDT, Tablet Start Date: 10/21/19 Stop Date: 10/28/19 Status: Ordered Flagyl 500 mg oral tablet 1 tablet = 500 mg, By Mouth, Every 12 hours, for 7 days, # 14 tablet, 0 Refills, Acute 10/28/19 19:46:00 EDT, 10/21/19 19:46:00 EDT, Tablet Start Date: 10/21/19 Stop Date: [...] Active Substance abuse(Confirmed) Active 04/20/14 ASCUS Results Orders for Microbiology Reports Name Date Wet Prep 10/21/19 Microbiology Reports TEST:Wet Prep STATUS:Auth (Verified) BODY SITE: SOURCE:VAGINA COLLECTED DATE/TIME:10/21/19 3:45 PM Wet Prep SPECIMEN DESCRIPTION : VAGINAL SPECIMEN SPECIAL REQUESTS : NONE DIRECT EXAM : 4+ WHITE BLOOD CELLS 3+ TRICHOMONAS NO YEAST OBSERVED NO CLUE CELLS OBSERVED REPORT STATUS : FINAL 10/21/2019 Vital Signs Most recent to oldest [Reference Range]: 1 Oxygen Saturation [94-100 %] 100 % (10/21/19 1:07 PM) Pulse Rate [55-90 bpm] 83 bpm (10/21/19 1:07 PM) Blood Pressure [90-138/55-84 mm Hg] 133/ 80mm Hg (10/21/19 1:07 PM) Respiratory Rate [16-30 br/min] 18 br/mi n (10/21/19 1:07 PM) Temperature [96.8-100.4 DegF] 99.4 DegF (10/21/19 1:07 PM) Mode of Delivery (Oxygen) Room air (10/21/19 1:07 PM) Blood pressure sites Arm, right (10/21/19 1:07 PM) Temperature Route Oral (10/21/19 1:07 PM) Social History Social History Type Response Smoking Status Current every day felix serna; Other: 4-5 cigarettes per day; entered on: 08/07/14 Sex
--- OUTSIDE RECORDS SUMMARY | 2022-11-21 21:51 | XMS_ITS | Continuity of Care Document ---
Author Name Unknown Organization [facility] Adult Address [address] [place] [address]- Care Team Providers Care Shipyard Painter Name Role Phone Maria Del Carmen OSEI, [facility] Primary Care Physician En[place] [facility] [place] Date(s): 09/01/20 - 09/08/20 [facility] [address] [place] [address]- Attending Physician: Percy Joyce MD Allergies, Adverse [...] Maintenance, 04/06/1614:33:19, Aerosol, Route to Pharmacy Electronically, [id number], [facility] [address], Compound Start Date: 04/06/16 Status: Ordered bacitracin topical 500 u/gm ointment 1 application, Topically, 3 times a day, # 15 Gm, 0 Refills, Maintenance, 01/28/20 21:17:00 EDT, Ointment, [facility], 1 application Topically 3 [...] oldest [Reference Range]: 1 Height 167 cm (09/01/20 10:01 AM) Social History Social History Type Response Smoking Status Current every day sm oker; Other: 4-5 cigarettes per day; entered on: 08/07/14 Sex
--- OUTSIDE RECORDS SUMMARY | 2022-11-21 21:51 | XMS_ITS | Continuity of Care Document ---
Author Name Unknown Organization [facility] Address [address] [place] [address]- Care Team Providers Care Group Exercise Instructor Name Role Phone Maria Del Carmen OSEI, [facility] Primary Care Physician Encounter [facility] Date(s): 04/04/20 - 05/04/[address] [address]- Allergies, Adverse Reactions, Alerts Substance Reaction Severity [...] Maintenance, 04/06/1614:33:19, Aerosol, Route to Pharmacy Electronically, [id number], [facility] [address], Compound Start Date: 04/06/16 Status: Ordered bacitracin topical 500 u/gm ointment 1 application, Topically, 3 times a day, # 15 Gm, 0 Refills, Maintenance, 01/28/20 21:17:00 EDT, Ointment, [facility], 1 application Topically 3 times a [...]
--- OUTSIDE RECORDS SUMMARY | 2022-11-21 21:51 | XMS_ITS | Continuity of Care Document ---
Author Name Unknown Organization [facility] ter Address [address] [place] [address]- Care Team Providers Care Neonatal Nurse Name Role Phone Percy Joyce MD Primary Care Physician [place] [facility] [place]s): 01/28/20 - 01/28/[address] [address]- [facility] Encounter Diagnosis Laceration of chest wall(Final) - 01/28/20 Discharge Disposition: A-D/C Home Attending Physician: Radha Fernandez MD Admitting Physician: Radha Fernandez MD Referring Physician: Not on Staff, Referring MD Allergies, Adverse Reactions, Alerts Substance Reaction Severity Status NKA Active Medications bacitracin topical 500 u/gm ointment 1 application, Topically, 3 times a day, # 15 Gm, 0 Refills, Maintenance, 01/28/20 21:17:00 EDT, Ointment, [facility], 1 application Topically 3 times a day Start Date: 01/28/20 Status: Ordered Results Radiology Reports * Exam Date Time Procedure Performing Provider Status 01/28/20 7:40 PM Chest Portable Kibe , Minnie; Auth (Ve rified) Notes: (Chest Portable) Reason For Exam: Other: RESULT: Chest Portable Chest Portable upright at 7:25 PM Reason: Other:; Clinical Question(s): Trauma, evaluate for fracture or pneumothorax. COMPARISON: None. FINDINGS: LINES AND TUBES: None. LUNGS AND PLEURA: Clear lungs. Normal pulmonary vascularity. No pleural effusion. No pneumothorax. HEART, MEDIASTINUM AND GISSELLE: Heart is normal in size. Normal mediastinal and hilar contour. BONES AND SOFT TISSUES: No acute abnormality. IMPRESSION: Normal chest. WSN: [id number] Ordering Physician: Ilsa Zarate Dictated By: Vladislav Munoz MD Dictated Date/Time: 01/28/20 7:43 pm Reviewed By: Vladislav Munoz MD Signed By: Vladislav Munoz MD Signed Date/Time: 01/28/20 7:43 pm Transcribed By: HARI Transcribed Date/Time: 01/28/20 7:42 pm Vital Signs Most recent to oldest [Reference Range]: 1 2 Oxygen Saturation [94-100 %] 99 % (01/28/20 10:16 PM) 97 % (01/28/20 8:13 PM) Pulse Rate [55-90 bpm] 75 bpm (01/28/20 10:16 PM) 88 bpm (01/28/20 8:13 PM) Blood Pressure [90-138/55-84 mm Hg] 130/ 67mm Hg (01/28/20 10:16 PM) 124/78mm Hg (01/28/20 8:13 PM) Respiratory Rate [16-30 br/min] 17 br/mi n (01/28/20 10:16 PM) 16 br/min (01/28/20 8:13 PM) Temperature [96.8-100.4 DegF] 98.5 DegF (01/28/20 10:16 PM) 98.2 DegF (01/28/20 7:38 PM) Liters per Minute 2 L/min (01/28/20 8:13 PM) Mode of Delivery (Oxygen) Room air (01/28/20 10:16 PM) Simple face mask (01/28/20 8:13 PM) Blood pressure sites Arm, left (01/28/20 10:16 PM) Arm, right (01/28/20 8:13 PM) Temperature Route Oral (01/28/20 10:16 PM) Oral (01/28/20 7:38 PM)
--- OUTSIDE RECORDS SUMMARY | 2022-11-21 21:51 | XMS_ITS | Continuity of Care Document ---
Author Name Unknown Organization [facility] ter Address [address] [place] [address]- Care Team Providers Care Library Acquisitions Technician Name Role Phone Maria Del Carmen OSEI, [facility] Primary Care Physician [place] [facility] [place] 02/21/[address] [address]- [facility] Discharge Disposition: A-D/C Home Attending Physician: Vladislav Aranda MD Admitting Physician: Vladislav Aranda MD Referring Physician: Not on Staff, Referring [...] Maintenance, 04/06/1614:33:19, Aerosol, Route to Pharmacy Electronically, [id number], [facility] [id number], Compound Start Date: 04/06/16 Status: Ordered bacitracin topical 500 u/gm ointment 1 application, Topically, 3 times a day, # 15 Gm, 0 Refills, Maintenance, 01/28/20 21:17:00 EDT, Ointment, [facility], 1 application Topically 3 [...] 3 Oxygen Saturation [94-100 %] 100 % (02/21/20 10:27 AM) 100 % (02/21/20 8:05 AM) 99 % (02/21/20 2:18 AM) Pulse Rate [55-90 bpm] 84 bpm (02/21/20 10:27 AM) 69 bpm (02/21/20 8:05 AM) 80 bpm (02/21/20 2:18 AM) Blood Pressure [90-138/55-84 mm Hg] 108/68mm Hg (02/21/20 10:27 AM) 113/60mm Hg (02/21/20 8:05 AM) 117/77mm Hg (02/21/20 2:18 AM) Respiratory Rate [16-30 br/min] 15 br/min *L* (02/21/20 10:27 AM) 18 br/min (02/21/20 8:05 AM) 16 br/min (02/21/20 2:18 AM) Temperature [96.8-100.4 DegF] 98.7 DegF (02/21/20 10:27 AM) 98.2 DegF (02/21/20 8:05 AM) 98.1 DegF (02/21/20 2:18 AM) Mode of Delivery (Oxygen) Room air (02/21/20 10:27 AM) Room air (02/21/20 8:05 AM) Room air (02/21/20 2:18 AM) Blood pressure sites Arm, right (02/21/20 10:27 AM) Arm, left (02/21/20 8:05 AM) Arm, right (02/21/20 2:18 AM) Temperature Route Oral (02/21/20 10:27 AM) Oral (02/21/20 8:05 AM) Oral (02/21/20 2:18 AM) Social History Social History Type Response Smoking Status Current every day sm oker; Other: 4-5 cigarettes per day; entered on: 08/07/14 Sex
--- OUTSIDE RECORDS SUMMARY | 2022-11-21 21:51 | XMS_ITS | Continuity of Care Document ---
Author Name Unknown Organization [facility] Adult Address [address] [place] [address]- Care Team Providers Care Control Clerk Food And Beverage Name Role Phone Maria Del Carmen OSEI, [facility] Primary Care Physician [place] [facility] [place] 09/01/20 - 10/01/20 [facility] Adult [address] [place] [address]- Allergies, Adverse Reactions, Alerts Substance Reaction Severity [...] Maintenance, 04/06/1614:33:19, Aerosol, Route to Pharmacy Electronically, [id number], [facility] [address], Compound Start Date: 04/06/16 Status: Ordered bacitracin topical 500 u/gm ointment 1 application, Topically, 3 times a day, # 15 Gm, 0 Refills, Maintenance, 01/28/20 21:17:00 EDT, Ointment, [facility], 1 application Topically 3 times a [...]
--- OUTSIDE RECORDS SUMMARY | 2022-11-21 21:51 | XMS_ITS | Continuity of Care Document ---
Author Name Unknown Organization [facility] Adult Address [address] [place] [address]- Care Team Providers Care Assembler Sandal Parts Name Role Phone Not on Staff, PCP Primary Care Physician Unavail able Encounter [facility] Date(s): 03/04/21 - 04/03/21 [facility] Adult [address] [place] [address]- Attending Physician: AdmJohan new Admitting Physician: Admtr, Ar8 Referring Physician: Admtr, Ar8 Allergies, Adverse Reactions, [...] 03/03/21 9:12:00 EST, Route to Pharmacy Electronically, [id number], Partial fill upon patient request if the [...]
--- OUTSIDE RECORDS SUMMARY | 2022-11-21 21:51 | XMS_ITS | Continuity of Care Document ---
Author Name Unknown Organization [facility] Adult Address [address] [place] [address]- Care Team Providers Care Senior Clerk Name Role Phone Maria Del Carmen OSEI, [facility] Primary Care Physician [place] [facility] [place] 09/27/20 [facility] Adult [address] [place] [address]- Allergies, Adverse Reactions, Alerts Substance Reaction Severity [...] Maintenance, 04/06/1614:33:19, Aerosol, Route to Pharmacy Electronically, [id number], [facility] [address], Compound Start Date: 04/06/16 Status: Ordered bacitracin topical 500 u/gm ointment 1 application, Topically, 3 times a day, # 15 Gm, 0 Refills, Maintenance, 01/28/20 21:17:00 EDT, Ointment, [facility], 1 application Topically 3 times [...]
--- OUTSIDE RECORDS SUMMARY | 2022-11-21 21:51 | XMS_ITS | Continuity of Care Document ---
Author Name Unknown Organization [facility] ter Address [address] [place] [address]- Care Team Providers Care Ticketer Name Role Phone Percy Joyce MD Primary Care Physician [place] [facility] [place] 07/14/20 - 07/16/[address] [address]- Encounter Diagnosis Agitation(Final) - 07/15/20 History of PCP abuse(Final) - 07/15/20 Discharge Disposition: A-D/C Home Attending Physician: Vladislav [...] Maintenance, 04/06/1614:33:19, Aerosol, Route to Pharmacy Electronically, [id number], [facility] [address], Compound Start Date: 04/06/16 Status: Ordered bacitracin topical 500 u/gm ointment 1 application, Topically, 3 times a day, # 15 Gm, 0 Refills, Maintenance, 01/28/20 21:17:00 EDT, Ointment, [facility], 1 application Topically [...] 3 Oxygen Saturation [94-100 %] 100 % (07/16/20 6:34 AM) 100 % (07/15/20 2:36 PM) 100 % (07/15/20 7:24 AM) Pulse Rate [55-90 bpm] 74 bpm (07/16/20 6:34 AM) 100 bpm *H* (07/15/20 2:36 PM) 109 bpm *H* (07/15/20 7:24 AM) Blood Pressure [90-138/55-84 mm Hg] 110/89mm Hg (07/16/20 6:34 AM) 111/79mm Hg (07/15/20 2:36 PM) 137/76mm Hg (07/15/20 7:24 AM) Respiratory Rate [16-30 br/min] 18 br/min (07/16/20 6:34 AM) 16 br/min (07/15/20 2:36 PM) 20 br/min (07/15/20 7:24 AM) Temperature [96.8-100.4 DegF] 98.7 DegF (07/16/20 6:34 AM) 98.4 DegF (07/15/20 2:36 PM) 98.4 DegF (07/15/20 7:24 AM) Mode of Delivery (Oxygen) Room air (07/16/20 6:34 AM) Room air (07/15/20 2:36 PM) Room air (07/15/20 7:24 AM) Blood pressure sites Arm, left (07/16/20 6:34 AM) Arm, right (07/15/20 2:36 PM) Arm, left (07/15/20 7:24 AM) Temperature Route Oral (07/16/20 6:34 AM) Oral (07/15/20 2:36 PM) Oral (07/15/20 7:24 AM) Social History Social History Type Response Smoking Status Current every day felix serna; Other: 4-5 cigarettes per day; entered on: 08/07/14 Sex
--- OUTSIDE RECORDS SUMMARY | 2022-11-21 21:51 | XMS_ITS | Continuity of Care Document ---
Author Name Unknown Organization [facility] [place] Address [address] [place] [address] [address] [place] [address]- Care Team Providers Care Service Manager Name Role Phone Maria Del Carmen OSEI, [facility] Primary Care Physician Encounter [facility] Date(s): 10/22/19 - 11/21/19 [facility] [address] [place] [address]- [facility] Attending Physician: Admshaq, Johan Admitting Physician: Admtr, Johan Referring Physician: Admtr, Ar8 Allergies, Adverse Reactions, [...] Maintenance, 04/06/1614:33:19, Aerosol, Route to Pharmacy Electronically, [id number], [facility] [address], Compound Start Date: 04/06/16 Status: Ordered dolutegravir [...]
--- OUTSIDE RECORDS SUMMARY | 2022-11-21 21:51 | XMS_ITS | Continuity of Care Document ---
Author Name Unknown Organization [facility] Adult Address [address] [place] [address]- Care Team Providers Care Film Library Clerk Name Role Phone Percy Joyce MD Primary Care Physician [place] [facility] [place] 08/13/20 - 09/19/20 [facility] Adult [address] [place] [address]- Attending Physician: Percy Joyce MD Allergies, Adverse [...] Maintenance, 04/06/1614:33:19, Aerosol, Route to Pharmacy Electronically, [id number], [facility] [address], Compound Start Date: 04/06/16 Status: Ordered bacitracin [...]
--- OUTSIDE RECORDS SUMMARY | 2022-11-21 21:51 | XMS_ITS | Continuity of Care Document ---
Author Name Unknown Organization [facility] Adult Address [address] [place] [address]- Care Team Providers Care Florist Designer Name Role Phone Maria Del Carmen OSEI, [facility] Primary Care Physician [place] [facility] [place] 09/21/20 [facility] Adult [address] [place] [address]- Allergies, Adverse Reactions, Alerts Substance Reaction Severity [...] Maintenance, 04/06/1614:33:19, Aerosol, Route to Pharmacy Electronically, [id number], [facility] [address], Compound Start Date: 04/06/16 Status: Ordered bacitracin topical 500 u/gm ointment 1 application, Topically, 3 times a day, # 15 Gm, 0 Refills, Maintenance, 01/28/20 21:17:00 EDT, Ointment, [facility], 1 application Topically 3 times [...]
--- OUTSIDE RECORDS SUMMARY | 2022-11-21 21:51 | XMS_ITS | Continuity of Care Document ---
Author Name Unknown Organization [facility] Address [address] [place] [address]- Care Team Providers Care Laydown Machine Operator Name Role Phone Percy Joyce MD Primary Care Physician ( [phone] Encounter [facility] Date(s): 06/25/20 - 06/25/[address] [address]- Discharge Disposition: A-D/C Home Attending Physician: Bryce Suresh MD Admitting Physician: Bryce Suresh MD Referring Physician: Not on Staff, Referring [...] Maintenance, 04/06/1614:33:19, Aerosol, Route to Pharmacy Electronically, [id number], [facility] [address], Compound Start Date: 04/06/16 Status: Ordered bacitracin topical 500 u/gm ointment 1 application, Topically, 3 times a day, # 15 Gm, 0 Refills, Maintenance, 01/28/20 21:17:00 EDT, Ointment, [facility], 1 application Topically 3 times [...] to oldest [Reference Range]: 1 2 3 Height 167 cm (06/25/20 1:00 PM) 167 cm (06/25/20 10:54 AM) 167 cm (06/25/20 10:38 AM) Weight 60 kg (06/25/20 1:00 PM) 60 kg (06/25/20 10:54 AM) 60 kg (06/25/20 10:38 AM) Oxygen Saturation [94-100 %] 98 % (06/25/20 1:00 PM) 99 % (06/25/20 10:54 AM) Pulse Rate [55-90 bpm] 67 bpm (06/25/20 1:00 PM) 73 bpm (06/25/20 10:54 AM) Body Mass Index [18.5-24.99] 21.51 (06/25/20 1:00 PM) 21.51 (06/25/20 10:54 AM) Blood Pressure [90-138/55-84 mm Hg] 116/75mm Hg (06/25/20 1:00 PM) 118/71mm Hg (06/25/20 10:54 AM) Respiratory Rate [16-30 br/min] 20 br/min (06/25/20 1:00 PM) 18 br/min (06/25/20 10:54 AM) Temperature [96.8-100.4 DegF] 98.0 DegF (06/25/20 10:54 AM) Mode of Delivery (Oxygen) Room air (06/25/20 1:00 PM) Room air (06/25/20 10:54 AM) Blood pressure sites Arm, left (06/25/20 1:00 PM) Arm, right (06/25/20 10:54 AM) Temperature Route Oral (06/25/20 10:54 AM) Dry Weight 60 kg (06/25/20 1:00 PM) 60 kg (06/25/20 10:54 AM) 60 kg (06/25/20 10:38 AM) Social History Social History Type Response Smoking Status Current every day felix serna; Other: 4-5 cigarettes per day; entered on: 08/07/14 Sex
--- OUTSIDE RECORDS SUMMARY | 2022-11-21 21:51 | XMS_ITS | Continuity of Care Document ---
Author Name Unknown Organization [facility] Address [address] [place] [address]- Care Team Providers Care Strike Plate Attacher Name Role Phone Maria Del Carmen OSEI, [facility] Primary Care Physician [place] [facility] [place] Date(s): 04/04/20 - 05/07/[address] [address]- Attending Physician: Not on Staff, Attending MD [...] Maintenance, 04/06/1614:33:19, Aerosol, Route to Pharmacy Electronically, [id number], [facility] [address], Compound Start Date: 04/06/16 Status: Ordered bacitracin topical 500 u/gm ointment 1 application, Topically, 3 times a day, # 15 Gm, 0 Refills, Maintenance, 01/28/20 21:17:00 EDT, Ointment, [facility], 1 application Topically 3 [...]
--- OUTSIDE RECORDS SUMMARY | 2022-11-21 21:51 | XMS_ITS | Patient Health Record ---
Author Name Unknown Organization [facility] Care Team Providers Care Sky Diver Name Role Phone Brian Mcpherson Unavailable [phone] Jenny Davenport Unavailable [phone] Usman Jha Unavailable Elodia Brito Unavailable [phone] ENCOUNTERS from 1992 to 2022-11-21 Encounter Location Date Provider Diagnosis [facility] [address] [place] [phone] Jan, Brian Mcpherson [facility] [address] [place] [address] [phone] May, Jenny Davenport [facility] [address] [place] [address] [phone] Sep, RADHACofroylan VELASQUEZ'Pierce [facility] [address] [place] [address] [phone] Dec, Saranya ZZMalave [facility] [address] [place] [address] [phone] Nov, ZGloriaCofroylan CastroZO'Pierce [facility] [address] [place] [address] [phone] Jul, RADHAWaldrohan ZZMalave [facility] [address] [place] [address] [phone] Jul, RADHAWaldrohan ZZMalave [facility] [address] [place] [address] [phone] Jul, GloriaZWaldemar ZZMalave [facility] [address] [place], [place] [phone] Jul, Usman Roaor [facility] [address] [place], [place] [phone] Jul, GloriaJon CastroZMalave [facility] [address] [place], [place] [phone] Jul, GloriaAishwaryar ZZMalave [facility] [address] [place] [phone] Jun, GloriaAishwaryar GloriaZMalave [facility] [address] [place] [phone] Jun, GloriaAishwaryacookie ZZMalave [facility] [address] [place] [phone] Jun, RADHAShahnazcookie GloriaZMalave [facility] [address] [place] [phone] Apr, Elodia Brito [facility] [address] [place] [phone] Apr, Elodia Brito SOCIAL HISTORY Sex Assigned At : Social History Observation Description Sex Assigned At Unknown REASON FOR REFERRAL No Information REASON FOR VISIT No Information MENTAL STATUS No Information PLAN OF TREATMENT No Information Insurance Providers Payer Name Payer Address Payer Phone Insured Name Patient Relationship to Insured Coverage Start Date Coverage End Date Subscriber Number Group Number [facility] Plan [address] [address] [facility] [address] Aniya Jackson Self - patient is the insured [id number]
--- NOTE | 2022-11-22 00:01 | PC.NURSE ---
pt waiting for ambulance transport back to [facility].
--- NOTE | 2022-11-22 01:06 | MHC.EDTECH ---
[facility], Luisana called at [phone] to inform me that picker packer will be a two hour delay
== END 2022-11-22 02:40 ==
PROVIDERS: Emergency Provider Internal Medicine
DX: Z77.21 Contact with and (suspected) exposure to potentially hazardous body fluids (principal)
CPT/HCPCS: 99285

== ENCOUNTER 2024-06-08 18:01 | Emergency (ER) | payer OTHER, SELFPAY ==
[2024-06-08] MEDS: Haloperidol Lactate 5 MG/ML VIAL IM (18:08)
[2024-06-08] MEDS: diphenhydrAMINE HCL 50 MG/ML VIAL IM (18:09)
[2024-06-08] MEDS: LORazepam 2 MG/ML VIAL IM (18:09)
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
[2024-06-08 18:17] VITALS: BMI 20.1
[2024-06-08 20:33] VITALS: RESP 16
--- NOTE | 2024-06-08 21:36 | PC.NURSE ---
patient was slowyl released from restraints, initially irritable and contradictory with staff, patient fell asleep and is still not fully changed over (client has a jacket and cheeky underwear on per arthur but client will be ab llowed to sleep and asked to change once she gets out of bed. patient spit arriola left on but client can remove this herself.
--- NOTE | 2024-06-08 22:35 | MHC.EDTECH ---
collection of labwork and UA sample delayed due to pt aggression. rn aware.
[2024-06-09 07:49] LABS: MANUAL DIFF FLAG NO
[2024-06-09 07:56] LABS: Basophils Absolute Auto 0.1 X10*3/uL (0.0-0.2); Basophils Percent Auto 0.8 % (0-2); Eosinophils Absolute Auto 0.3 X10*3/uL (0.0-0.4); Eosinophils Percent Auto 4.2 % (0-4); Hematocrit 44.7 % (37.0-47.0); Hemoglobin 15.4 g/dl (12.0-16.0); Imm Gran Abs Auto 0.03 X10*3/uL (0.00-0.03); Imm Gran Pct Auto 0.4 % (0.0-0.4); Lymphocytes Absolute Auto 2.6 X10*3/uL (1.2-4.9); Lymphocytes Percent Auto 33.7 % (20-40); Mean Corpuscular HGB Conc 34.5 g/dl (31.0-35.0); Mean Corpuscular Hemoglobin 31.4 pg (27.0-33.0); Mean Platelet Volume 11.9 fL (9.4-12.3); Monocytes Absolute Auto 0.5 X10*3/uL (0.1-1.2); Monocytes Percent Auto 7.1 % (2-11); Neutrophils Absolute Auto 4.1 x10*3/uL (2.0-8.3); Neutrophils Percent Auto 53.8 % (45-73); Platelet Count 234 X10*3/uL (160-400); Red Blood Count 4.91 X10*6/uL (4.20-5.50); Red Cell Distribution Width 13.1 % (11.0-16.0); White Blood Count 7.7 X10*3/uL (4.8-10.8)
[2024-06-09 08:22] LABS: Alanine Aminotransferase 17 U/L (0-31); Albumin Level 3.8 g/dL (3.5-5.0); Anion Gap 10 (12-20); Aspartate Amino Transferase 22 U/L (5-31); Bilirubin Direct 0.2 mg/dL (0.0-0.5); Bilirubin Total 0.5 mg/dL (0.0-1.0); Blood Urea Nitrogen 13 mg/dL (9-16); Calcium 8.8 mg/dL (8.4-10.2); Carbon Dioxide 24 mmol/L (22-29); Chloride 111 mmol/L (96-108); Creatinine Clr Calc Pharmacy 77.4; Estimated Glomerular Filt Rate > 60; Ethanol < 10 mg/dL; Glucose Random 93 mg/dL (60-115); HCG Quantitative < 2 mIU/mL; Potassium 3.8 mmol/L (3.3-5.1); Sodium 141 mmol/L (135-145); Total Protein 7.1 g/dL (6.5-8.0)
[2024-06-09 09:23] VITALS: BP 108/66; PULSE 67; RESP 14; TEMP 36.6; O2SAT 99
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
[2024-06-09 11:18] LABS: Alkaline Phosphatase 44 U/L (39-117)
--- NOTE | 2024-06-09 12:05 | PC.NURSE ---
Pt remains somnolent in room; vss; unlabored respirations noted; pt asked to give a urine sample/declines at this time; PO fluids at bedside for pt
--- NOTE | 2024-06-09 14:48 | PC.NURSE ---
Care team provider in room to speak with pt
--- NOTE | 2024-06-09 16:16 | PC.NURSE ---
Pt stating to Care fast food team member that she wants to leave; pt informed that she won't be DC'd tonight; at this time, pt is calm and sleeping in room
--- NOTE | 2024-06-09 16:44 | MHC.CARE ---
Patient unable to fully engage in evaluation and will be reassessed tomorrow. ED provider, Dr. Armstrong in agreement with this plan of care.
--- NOTE | 2024-06-09 17:26 | MHC.EDTECH ---
This tech woke patient and asked if she needed to use the restroom. I explained that I had been caring for her since 0700 and it was now 1730. Patient stated again that she did not have to go to the bathroom, but asked for a blanket and stated she was hungry. This tech provided a warm blanket, sandwich, pudding and cranberry juice.
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
--- NOTE | 2024-06-09 18:16 | PC.NURSE ---
Pt uncooperative with care when awake; pt refusing vs to be taken and refusing to provide a urine sample; pt remains sleeping in room, occasionally has some PO intake
--- NOTE | 2024-06-09 18:34 | PC.NURSE ---
Pt OOB to BR; urine sample collected/sent
[2024-06-09 19:04] LABS: Amphetamine Screen Urine Not Detected (Not Detect); Barbiturates, Urine Not Detected (Not Detect); Benzodiazepines Screen Urine Not Detected (Not Detect); Buprenorphine Scr Not Detected (Not Detect); Cannabinoid Screen Urine POSITIVE (Not Detect); Cocaine Screen Urine POSITIVE (Not Detect); Fentanyl, urine Not Detected (Not Detect); Methadone Screen, Urine Not Detected (Not Detect); Opiate Screen Urine Not Detected (Not Detect); Oxycodone Screen Urine Not Detected (Not Detect); Phencyclidine Screen Urine POSITIVE (Not Detect)
--- NOTE | 2024-06-09 22:23 | PC.NURSE ---
patient appears to remain at rest at present, respirations are even and unlabored patient appears in no distress
--- NOTE | 2024-06-10 09:51 | MHC.EDTECH ---
Patient refused vitals. RN aware
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
--- NOTE | 2024-06-10 15:52 | MHC.EDTECH ---
Patient yelling out of her room, stating I'll let you check my blood pressure if you bring me two warm blankets. This tech explained to patient that I do not barter with patients for care. That I would provide her the blankets after I updated her vital signs but that we would not be managing her care that way. Patient stated that this tech was ghetto and ugly.
[2024-06-10 16:02] VITALS: BP 103/52; PULSE 95; RESP 14; TEMP 36.8; O2SAT 97
--- NOTE | 2024-06-10 18:56 | PC.NURSE ---
patient appears to remain asleep at present respirations are even and unlabored patient appears in no distress
[2024-06-11 05:50] VITALS: RESP 12
--- NOTE | 2024-06-11 08:15 | PC.NURSE ---
Assumed care of patient at 0645, patient appears to be sleeping, respirations even and unlabored, no apparent distress noted. Continue plan of care for inpt bedsearch.
[2024-06-11 08:16] VITALS: RESP 16
[2024-06-11 13:47] VITALS: RESP 18
[2024-06-11 15:02] VITALS: BP 104/63; PULSE 94; RESP 16; TEMP 36; O2SAT 99
[2024-06-11 17:33] VITALS: BP 127/67; PULSE 84; RESP 14; TEMP 36.9; O2SAT 97
== END 2024-06-11 17:36 | disposition home or self-care (01) ==
PROVIDERS: Emergency Provider Emergency Medicine
DX: F23 Brief psychotic disorder (principal); F16.10 Hallucinogen abuse, uncomplicated; R41.82 Altered mental status, unspecified; Z51.81 Encounter for therapeutic drug level monitoring; Z79.899 Other long term (current) drug therapy
CPT/HCPCS: 36415; 80048; 80076; 80307; 84702; 85025; 96372; 99285; J1200; J1630; J2060; S9485